=== PATIENT | female | born 1995 | race Caucasian/White ===

== ENCOUNTER 2021-12-15 14:14 | Emergency (ER) | payer MEDICAID, SELFPAY ==
[2021-12-15 14:15] VITALS: BP 118/86; PULSE 93; RESP 16; TEMP 36.6; O2SAT 99
[2021-12-15 14:50] VITALS: RESP 16
--- NOTE | 2021-12-15 14:50 | EDS_ITS ---
HPI History of Present Illness Chief Complaint: Substance Abuse Narrative Narrative: 26-year-old female presents with her father for opiate withdrawal symptoms. She states that she usually snorts fentanyl, 2 to 3 g a day and has done so for the last 2 years. She does not want detox, but has been having nausea, vomiting, and diarrhea with abdominal cramping. She states her last use was 10 days ago on . She also states she does not want to enter detox because she does not want to take Suboxone. She denies any suicidal ideation but presents for treatment of her symptoms, mainly the nausea and the abdominal cramping/diarrhea. She denies any fevers or chills. No chest pain or shortness of breath. PFSH PFSH Home Medications dicyclomine 20 mg tablet 20 mg PO TID PRN abdominal discomfort #20 tabs 12/15/21 [Rx Last Taken Unknown] ondansetron 4 mg disintegrating tablet 4 mg PO Q6H PRN nausea and vomiting #20 tabs 12/15/21 [Rx Last Taken Unknown] Allergy/AdvReac Type Severity Reaction Status Date / Time No Known Allergies Allergy Verified 12/15/21 14:22 ROS ROS ED ROS Narrative Constitutional: No fever, no chills. HEENT: No sore throat. No neck pain. No loss of vision. No rhinorrhea. Cardiovascular: No chest pain. No palpitations. No pedal edema. Respiratory: No cough, no shortness of breath. Abdominal: Diffuse abdominal cramping/abdominal pain. Positive nausea. Positive nonbloody vomiting. Endorses diarrhea without any blood in her stool. Genitourinary: No dysuria. No hematuria. Musculoskeletal: No myalgias. No arthralgias. Neurologic: No headaches. No dizziness. No lightheadedness. Skin: No rash. No change in color. Psychiatric: No depression. No anxiety. EXAM Physical Exam Narrative Exam Narrative: Afebrile. Vital signs noted. HEENT: Normocephalic. Atraumatic. PERRL, EOMI. Neck soft and supple. No point tenderness or step off. Cardiovascular: Regular rate and rhythm. No murmurs, rubs, or gallops appreciated. Respiratory: No tachypnea. Lungs clear to auscultation bilaterally. Gastrointestinal: Abdomen soft, nontender, with normoactive bowel sounds. No rebound or guarding. Neurological: Awake. Alert. Nonfocal, nonlateralizing. Skin: No rash. Normal color. No pallor. Musculoskeletal: No pedal edema. Full range of motion extremities. Const Vital Signs: 12/15/21 14:15 Temperature 98 F Temperature Source Temporal Pulse Rate 93 Respiratory Rate 16 Blood Pressure 118/86 H Blood Pressure Mean 96 Pulse Ox 99 Oxygen Delivery Method Room Air MDM MDM MDM Narrative Medical decision making narrative: In discussion with the patient and her father, she does not want to enter detox. Additionally, it has been 10 days since she last used opiates/snorted fentanyl. Treatment will be symptomatic with a dose of Zofran and Bentyl here in the emergency department. She was told that while I can treat her symptoms, that she should follow-up with an clinical specialist medical device. She states she has an appointment with [facility]. As opiate withdrawal is not life-threatening, I feel she can be discharged safely home with follow-up. Return instructions to the e mergency department were reviewed. Disposition is discharged home in stable condition. Discharge Plan Triage Chief Complaint: Substance Abuse ED Provider: Ovidio Richard Dx/Rx/DC Orders Clinical Impression: Fentanyl use disorder, mild, abuse, Nausea & vomiting, Opiate withdrawal Instructions: ED Opiate Abuse, ED Opioid Withdrawal Prescriptions: New dicyclomine 20 mg tablet 20 mg PO TID PRN (Reason: abdominal discomfort) Qty: 20 0RF ondansetron 4 mg tablet,disintegrating 4 mg PO Q6H PRN (Reason: nausea and vomiting) Qty: 20 0RF Primary Care Provider: Care Physician,No Primary Referrals: Care Physician,No Primary [Primary Care Provider] - Activity Restrictions/Additional Instructions: Take medications as directed for your symptoms. Follow-up with [facility] as soon as possible. Disposition Disposition: Home, Self Care
[2021-12-15] MEDS: Ondansetron ODT 4 MG Tablet PO (15:02)
[2021-12-15] MEDS: Dicyclomine 10 MG Capsule 20 MG PO (15:02)
== END 2021-12-15 15:06 | disposition home or self-care (01) ==
PROVIDERS: Emergency Provider Emergency Medicine; Visit Provider Emergency Medicine
DX: F11.13 Opioid abuse with withdrawal (principal); R11.2 Nausea with vomiting, unspecified; R10.9 Unspecified abdominal pain; R19.7 Diarrhea, unspecified
CPT/HCPCS: 99283